=== PATIENT | female | born 1955 | race Caucasian/White ===

== ENCOUNTER 2016-09-10 10:54 | Emergency (ER) | payer OTHER, MEDICARE ==
[~2016-09-10 10:54] MED LIST: ASPIR 8181 MG PO; CATAPRES 0.1MG0.1 MG PO; HYDROCHLOROTH12.5 MG PO; LIPITOR TAB 1010 MG PO; LISINOPRIL40 MG PO; METOPROLOL SUCC25 MG PO; PLAVIX 75 MG TA75 MG PO; PROTONIX40 MG PO; VENTOLIN HFA8 GM INH; VOLTAREN100 GM TP; XOPENEX1.25 MG/3 INH
[2016-09-10 12:00] LABS: HEMOGLOBIN 16.6 gm/dl (12.3-15.3); RED BLOOD COUNT 4.79 M/UL (4.00-5.10); WHITE BLOOD COUNT 17.9 K/UL (4.5-11.0)
[2016-09-10 12:17] LABS: BUN/CREATININE RATIO 11 (0-10)
== END 2016-09-10 13:35 | disposition short-term general hospital (02) ==
LOC: ER1 10:54
PROVIDERS: Emergency Medicine
DX: S01.81XA Laceration without foreign body of other part of head, initial encounter (principal); S06.309A Unspecified focal traumatic brain injury with loss of consciousness of unspecified duration, initial encounter; R41.0 Disorientation, unspecified; F17.200 Nicotine dependence, unspecified, uncomplicated; W19.XXXA Unspecified fall, initial encounter; Y92.009 Unspecified place in unspecified non-institutional (private) residence as the place of occurrence of the external cause
CPT/HCPCS: 36415; 70450; 70486; 71250; 72125; 72128; 72131; 80053; 81001; 82550; 82553; 83874; 84484; 85025; 85610; 85730; 93005; 94664; 96365; 96375; 99291; G0480; J1953; J2405; J2930; J7050

== ENCOUNTER → 2016-09-23 | Outpatient (CLI) | payer MEDICARE, OTHER | LOC: EXRD 13:52 | DX: J44.9 Chronic obstructive pulmonary disease, unspecified (principal); J20.9 Acute bronchitis, unspecified | CPT/HCPCS: 71020 ==

== ENCOUNTER → 2016-10-06 | Outpatient (CLI) | payer MEDICARE, OTHER | LOC: HEART 5 11:07 | DX: R55 Syncope and collapse (principal); I25.10 Atherosclerotic heart disease of native coronary artery without angina pectoris ==

== ENCOUNTER → 2016-10-23 | Outpatient (CLI) | payer MEDICARE, OTHER | LOC: US 13:30 | DX: R93.8 Abnormal findings on diagnostic imaging of other specified body structures (principal); E04.2 Nontoxic multinodular goiter | CPT/HCPCS: 76536 ==

== ENCOUNTER → 2017-02-02 | Outpatient (CLI) | payer MEDICARE | LOC: MAMO 01-27 08:27 | DX: R92.8 Other abnormal and inconclusive findings on diagnostic imaging of breast (principal) | CPT/HCPCS: G0202 ==

== ENCOUNTER → 2020-08-26 | Outpatient (CLI) | payer MEDICARE, SELFPAY | LOC: KOH-I 10:51 | DX: K40.90 Unilateral inguinal hernia, without obstruction or gangrene, not specified as recurrent (principal); R10.9 Unspecified abdominal pain; J98.4 Other disorders of lung; K59.00 Constipation, unspecified; I70.8 Atherosclerosis of other arteries | CPT/HCPCS: 74176 ==

== ENCOUNTER → 2020-09-04 | Outpatient (CLI) | payer MEDICARE, SELFPAY | LOC: KOH-I 09:44 | DX: M79.604 Pain in right leg (principal); M79.605 Pain in left leg; R93.1 Abnormal findings on diagnostic imaging of heart and coronary circulation | CPT/HCPCS: 93922; 93925 ==

== ENCOUNTER → 2020-09-23 | Outpatient (CLI) | payer MEDICARE | LOC: HEART 5 11:35 | DX: Z01.811 Encounter for preprocedural respiratory examination (principal); J44.9 Chronic obstructive pulmonary disease, unspecified; R94.2 Abnormal results of pulmonary function studies; F17.210 Nicotine dependence, cigarettes, uncomplicated | CPT/HCPCS: 94060; 94729 ==

== ENCOUNTER → 2020-09-25 | Outpatient (CLI) | payer MEDICARE | LOC: KOH-I 15:52 | DX: J43.9 Emphysema, unspecified (principal) | CPT/HCPCS: 71046 ==

== ENCOUNTER → 2020-10-14 | Outpatient (CLI) | payer MEDICARE, OTHER | LOC: CT 07:31 | DX: I73.9 Peripheral vascular disease, unspecified (principal); I67.2 Cerebral atherosclerosis; I65.01 Occlusion and stenosis of right vertebral artery; I70.203 Unspecified atherosclerosis of native arteries of extremities, bilateral legs; N26.1 Atrophy of kidney (terminal); I12.9 Hypertensive chronic kidney disease with stage 1 through stage 4 chronic kidney disease, or unspecified chronic kidney disease; N18.9 Chronic kidney disease, unspecified; J98.4 Other disorders of lung; Z95.828 Presence of other vascular implants and grafts | CPT/HCPCS: 36415; 75635; 82565; Q9967 ==

== ENCOUNTER → 2021-09-03 | Outpatient (CLI) | payer MEDICARE ==
[2021-09-03 10:42] LABS: BUN/CREATININE RATIO 17 (0-10)
== END ==
LOC: LAB 09:58
PROVIDERS: Family Medicine
DX: E87.5 Hyperkalemia (principal)
CPT/HCPCS: 36415; 80048

== ENCOUNTER → 2021-10-07 | Outpatient (CLI) | payer MEDICARE, OTHER | LOC: LAB 13:07 | DX: N89.8 Other specified noninflammatory disorders of vagina (principal); R30.0 Dysuria; R07.81 Pleurodynia; M54.50 Low back pain, unspecified; M95.4 Acquired deformity of chest and rib | CPT/HCPCS: 71101; 72110; 81001; 87086 ==

== ENCOUNTER → 2021-12-23 | Outpatient (CLI) | payer MEDICARE | LOC: KOH-I 08:00 | DX: R10.9 Unspecified abdominal pain (principal); K40.90 Unilateral inguinal hernia, without obstruction or gangrene, not specified as recurrent; K59.00 Constipation, unspecified | CPT/HCPCS: 74176 ==

== ENCOUNTER → 2022-01-08 | Outpatient (CLI) | payer MEDICARE ==
[2022-01-08 12:37] LABS: BUN/CREATININE RATIO 22 (0-10)
== END ==
LOC: LAB 11:08
PROVIDERS: Family Medicine
DX: E78.5 Hyperlipidemia, unspecified (principal); I10 Essential (primary) hypertension
CPT/HCPCS: 36415; 80053; 80061; 83735

== ENCOUNTER → 2022-02-26 | Outpatient (CLI) | payer MEDICARE | LOC: CT 08:00 | DX: I74.09 Other arterial embolism and thrombosis of abdominal aorta (principal); K40.90 Unilateral inguinal hernia, without obstruction or gangrene, not specified as recurrent; Z79.02 Long term (current) use of antithrombotics/antiplatelets; E78.00 Pure hypercholesterolemia, unspecified; I77.1 Stricture of artery | CPT/HCPCS: 36415; 75635; 82565; 84520; Q9967 ==